=== PATIENT | female | born 1990 | race Hispanic/Latino ===

== ENCOUNTER 2018-03-08 19:42 | Inpatient (IN) | payer OTHER ==
[~2018-03-08] VITALS: Ht 170.2 cm; Wt 98.0 kg
[2018-03-08] MEDS ORDERED: LACTATED RINGERS 1000ML 1,000 ML IV PRN (20:06)
[2018-03-08] MEDS ORDERED: OXYTOCIN-LR 20 UNITS/1000 ML 1,000 ML IV SCH (20:15)
[2018-03-08 20:20] LABS: APPEARANCE,URINE Cloudy (CLEAR); BILIRUBIN,URINE Negative (NEGATIVE); COLOR,URINE Dark Yellow (YELLOW); GLUCOSE, URINE (UA) Negative (NEGATIVE); KETONES,URINE Trace mg/dL (NEGATIVE); LEUKOCYTE ESTERASE ,URINE Moderate (NEGATIVE); NITRATE,URINE Negative (NEGATIVE); OCCULT BLOOD,URINE Negative (NEGATIVE); PROTEIN,URINE Trace (NEGATIVE)
[2018-03-08 20:32] LABS: HEMATOCRIT 36.7 % (36-48); MEAN CORPUSCULAR HEMOGLOBIN 30.2 pg (27.0-33.0); MEAN CORPUSCULAR HGB CONC 33.5 g/dL (32.0-36.0); MEAN CORPUSCULAR VOLUME 90.3 fL (79-99); PLATELET COUNT (AUTO) 144 K/uL (130-400); RED BLOOD CELL COUNT(AUTO) 4.07 MIL/uL (4.00-5.50); RED CELL DISTRIBUTION WIDTH 13.7 % (11.0-15.5); WHITE BLOOD COUNT (AUTO) 11.1 K/uL (4.8-10.8)
[2018-03-08 20:47] VITALS: BP 127/79
[2018-03-08 20:57] LABS: BACTERIA,URINE Few /HPF (None Seen); RBC,URINE None Seen /HPF (0-1)
[2018-03-09] MEDS ORDERED: OXYTOCIN 10 USP UNITS/ML 20 UNIT in LACTATED RINGERS 1000ML 1,000 ML IV SCH ×2 (03:00→14:00)
[2018-03-09] MEDS ORDERED: OXYTOCIN 10 USP UNITS/ML ONE (03:40)
[2018-03-09] MEDS ORDERED: LACTATED RINGERS 1000ML 1,000 ML IV ONE ×2 (03:40→12:17)
[2018-03-09 07:02] LABS: RAPID PLASMA REAGIN NONREACTIVE (NONREACTIVE)
[2018-03-09] MEDS ORDERED: PROMETHAZINE HCL 25 MG/ML 1ML AMPULE IM ONE (15:08)
[2018-03-09] MEDS ORDERED: MEPERIDINE-PF 50 MG/ML SYG ONE (15:08)
[2018-03-09] MEDS ORDERED: MEPERIDINE-PF 50 MG/ML SYG IVP ONE (15:15)
[2018-03-09] MEDS ORDERED: PROMETHAZINE HCL 25 MG/ML 1ML AMPULE IM SCH (15:15)
[2018-03-09] MEDS ORDERED: CELESTONE SOLUSPAN 6 MG/ML 5ML VIAL IM SCH (16:15)
[2018-03-09] MEDS ORDERED: LIDOCAINE HCL 1% 20 ML VIAL ONE (18:58)
[2018-03-09] MEDS ORDERED: IBUPROFEN 600 MG TABLET ONE (19:27)
[2018-03-09] MEDS ORDERED: DIPH,PERTUSS(ACELL),TET VAC/PF 0.5 ML VIAL IM PRN (19:30)
[2018-03-09] MEDS ORDERED: BENZOCAINE/LANOLIN/ALOE VERA 60 ML AEROSOL TP PRN (19:30)
[2018-03-09] MEDS ORDERED: ACETAMINOPHEN 325 MG TAB PO PRN (19:30)
[2018-03-09] MEDS ORDERED: LANOLIN 30GM OINTMENT TP PRN (19:30)
[2018-03-09] MEDS ORDERED: MEASLES/MUMPS/RUBELLA VACCINE, LIVE 0.5 ML/VIAL SQ PRN (19:30)
[2018-03-09] MEDS ORDERED: OXYTOCIN-LR 20 UNITS/1000 ML 1,000 ML IV SCH (19:30)
[2018-03-09] MEDS ORDERED: ACETAMINOPHEN-CODEINE 300/30MG TAB PO PRN (19:30)
[2018-03-09] MEDS ORDERED: WITCH HAZEL 1 PAD TP PRN (19:30)
--- NOTE | 2018-03-09 22:20 | NUR ---
Patient received from L&D: Patient came in via bed accompanied by Arti Gillis and Jairon Rm RN. Patient had IV of LR with 20 units Pitocin infusing well. Oriented to room, call light given. Fundus firm at the level of umbilicus with small Lochia Rubra. Plan of care discussed with patient verbalizes understanding.
[2018-03-09 22:33] VITALS: BP 106/63
[2018-03-09] MEDS: DOCUSATE SODIUM 100 MG CAP PO SCH (22:39)
[2018-03-09] MEDS ORDERED: PREN-66 PO (22:48)
[2018-03-09] MEDS ORDERED: FERR-82 PO (22:48)
[2018-03-10 00:21] VITALS: BP 102/74
[2018-03-10] MEDS: IBUPROFEN 600 MG TABLET PO PRN ×3 (04:27→18:09)
[2018-03-10 04:35] VITALS: BP 107/56
[2018-03-10 05:50] LABS: HEMATOCRIT 31.5 % (36-48); MEAN CORPUSCULAR HEMOGLOBIN 30.6 pg (27.0-33.0); MEAN CORPUSCULAR HGB CONC 33.4 g/dL (32.0-36.0); MEAN CORPUSCULAR VOLUME 91.7 fL (79-99); PLATELET COUNT (AUTO) 146 K/uL (130-400); RED BLOOD CELL COUNT(AUTO) 3.44 MIL/uL (4.00-5.50); RED CELL DISTRIBUTION WIDTH 13.7 % (11.0-15.5); WHITE BLOOD COUNT (AUTO) 17.6 K/uL (4.8-10.8)
[2018-03-10 07:19] VITALS: BP 118/82
--- NOTE | 2018-03-10 08:15 | NUR ---
PATIENT IS STABLE AND DENIES PAIN. SALINE LOCK WAS REMOVED AFTER JAZIEL BAUTISTA CNM ROUNDED THIS A.M. AND DISCHARGED PATIENT TO HOME TODAY. PATIENT IS TOLERATING ACTIVITY WELL WITHOU ANY PROBLEMS. STATES NOT BECAUSE NOTHING COMES OUT AND SHE HAS NO MILK. PATIENT ENCOURAGED TO BREASTFEED ON DEMAND AND HER COLOSTRUM WILL BE ENOUGH FOR HER BABY. IT WILL ALSO STIMULATE HER BREAST TO HAVE HER MILK COME IN SOONER.
[2018-03-10 08:26] LABS: HEPATITIS Bs ANTIGEN SCREEN P Negative (Negative)
[2018-03-10] MEDS: DOCUSATE SODIUM 100 MG CAP PO SCH (08:41)
--- NOTE | 2018-03-10 11:00 | NUR ---
PATIENT HAS REMAINED STABLE AND DENIES PAIN. RESTING IN BED AND FAMILY CARING FOR BABY.
[2018-03-10 11:20] VITALS: BP 107/70
[2018-03-10 15:19] VITALS: BP 116/71
--- NOTE | 2018-03-10 16:20 | NUR ---
DISCHARGE INSTRUCTIONS GIVEN AND PATIENT STATES WAS ALREADY INSTRUCTED ON USE OF SITZ BATH. PATIENT DENIES PAIN AND IS UP TO CHAIR WAITING ON BABY DISCHARGE. PATIENT WAS MADE AWARE THAT BABY COULD NOT BE DISCHARGED UNTIL AFTER 7PM TONIGHT.
--- NOTE | 2018-03-10 19:05 | NUR ---
PATIENT WAS TAKEN VIA W/C TO FAMILY VEHICLE CARRYING BABY IN ARMS. PATIENT IS STABLE AND DENIES PAIN. DISCHARGED TO HER FAMILY.
== END 2018-03-10 19:05 | disposition home or self-care (01) | DRG 807 ==
LOC: LDH 19:42 → WSH 03-09 22:20
PROVIDERS: ADMIT Obstetrics & Gynecology; ATTEND Obstetrics & Gynecology
PROC: 10E0XZZ Delivery of Products of Conception, External Approach (ICD-10-PCS; principal; 2018-03-09)
PROC: 10907ZC Drainage of Amniotic Fluid, Therapeutic from Products of Conception, Via Natural or Artificial Opening (ICD-10-PCS; 2018-03-09)
PROC: 0W8NXZZ Division of Female Perineum, External Approach (ICD-10-PCS; 2018-03-09)
PROC: 3E033VJ Introduction of Other Hormone into Peripheral Vein, Percutaneous Approach (ICD-10-PCS; 2018-03-09)
DX: O69.81X0 Labor and delivery complicated by cord around neck, without compression, not applicable or unspecified (principal); Z37.0 Single live birth; Z3A.38 38 weeks gestation of pregnancy
CPT/HCPCS: 36415; 76815; 81001; 85027; 86592; 86701; 86850; 86900; 86901; 87340; 87390; A4351; G0378; J2175; J2550; J2590; J7120